=== PATIENT | female | born 1980 | race Two or more races ===

== ENCOUNTER 2017-05-28 14:07 | Inpatient (IN) | payer OTHER ==
[2017-05-28 14:12] VITALS: BMI 30.2
--- NOTE | 2017-05-28 15:46 | PDOC ---
History of Present Illness - General History Source: Patient Exam Limitations: No Limitations - History of Present Illness Initial Comments: CHIEF COMPLAINT: 36 y/o afebrile female with no significant PMH c/o abdominal pain since 4am. HISTORY OF PRESENT ILLNESS: The patient states the pain started in her epigastric region but is now everywhere. She states it is constant in nature. She has vomited 3 times and is nauseous. She denies f/c, ENGEL, diarrhea, constipation, CP, SOB, back pain, hematuria, dysuria. Vital signs on arrival are within normal limits. REVIEW OF SYSTEMS: GENERAL/CONSTITUTIONAL: No fever/chills. No weakness. No weight change. HEAD, EYES, EARS, NOSE AND THROAT: No change in vision. No ear pain or discharge. No sore throat. CARDIOVASCULAR: No chest pain or shortness of breath. RESPIRATORY: No cough, wheezing, or hemoptysis. GASTROINTESTINAL: +abd pain, nausea and vomiting. No diarrhea or constipation. GENITOURINARY: No dysuria, frequency, or change in urination. MUSCULOSKELETAL: No joint or muscle swelling or pain. No neck or back pain. SKIN: No rash or easy bruising. NEUROLOGIC: No headache, vertigo, loss of consciousness, or loss of sensation. PHYSICAL EXAM: GENERAL: The patient is awake, alert, and fully oriented, non toxic but uncomfortable appearing. HEAD: Normal with no signs of trauma. ENT: Pupils equal, round and reactive to light, extraocular movements intact, sclera anicteric, conjunctiva clear. Neck supple. LUNGS: Clear to auscultation bilaterally. Normal excursion. No respiratory distress or use of accessory muscles. CV: RRR, S1/S2, no MRG. Cap refill < 2 sec. ABDOMEN: Soft, non-distended, TTP of RLQ with passive guarding. No rebound or rigidity. Patient points to belly button as location of pain when jumping up and down. EXTREMITIES: Normal range of motion, no edema. NEUROLOGICAL: Normal speech, normal gait. CN II-XII grossly intact. PSYCH: Normal mood, normal affect. SKIN: Warm, dry, normal turgor, no rashes or lesions noted. <Trina Lynn - Last Filed: 05/28/17 18:20> <Susan Cerda - Last Filed: 05/28/17 20:40> - General Chief Complaint: Pain Stated Complaint: STOMACH PAIN Time Seen by Provider: 05/28/17 15:43 Past History - Psycho/Social/Smoking Cessation Hx Suicidal Ideation: No Smoking History: Never smoked Information on smoking cessation initiated: No <Trina Lynn - Last Filed: 05/28/17 18:20> <Susan Cerda - Last Filed: 05/28/17 20:40> - Past Medical History Allergies/Adverse Reactions: Allergies Allergy/AdvReac Type Severity Reaction Status Date / Time No Known Allergies Allergy Verified 05/28/17 14:12 *Physical Exam - Vital Signs Last Vital Signs Temp Pulse Resp BP Pulse Ox 97.9 F 79 18 121/69 100 05/28/17 14:09 05/28/17 14:09 05/28/17 14:09 05/28/17 14:09 05/28/17 14:09 <Trina Lynn - Last Filed: 05/28/17 18:20> - Vital Signs Last Vital Signs Temp Pulse Resp BP Pulse Ox 97.9 F 79 18 121/69 100 05/28/17 14:09 05/28/17 14:09 05/28/17 14:09 05/28/17 14:09 05/28/17 14:09 <Susan Cerda - Last Filed: 05/28/17 20:40> ED Treatment Course - LABORATORY CBC & Chemistry Diagram: 05/28/17 16:00 05/28/17 16:00 <Trina Lynn - Last Filed: 05/28/17 18:20> - LABORATORY CBC & Chemistry Diagram: 05/28/17 16:00 05/28/17 16:00 - ADDITIONAL ORDERS Additional order review: Laboratory Results 05/28/17 05/28/17 05/28/17 17:15 16:30 16:00 Sodium 135 L Potassium 4.2 Chloride 104 Carbon Dioxide 26 Anion Gap 5 L BUN 12 Creatinine 0.6 Creat Clearance w eGFR > 60 Random Glucose 93 Lactic Acid 1.9 Calcium 8.7 Total Bilirubin 1.0 AST 17 ALT 28 Alkaline Phosphatase 57 Total Protein 8.3 H Albumin 4.1 Urine Color Yellow Urine Appearance Clear Urine pH 7.0 Urine Protein Negative Urine Glucose (UA) Negative Urine Ketones Trace H Urine Blood 2+ H Urine Nitrite Negative Urine Bilirubin Negative Urine Urobilinogen Negative Ur Leukocyte Esterase Negative Urine RBC 16 Urine WBC 2 Ur Epithelial Cells Rare Urine Mucus Rare Urine HCG, Qual Negative 05/28/17 16:00 RBC 4.21 MCV 86.6 MCHC 32.9 RDW 15.1 MPV 7.4 L Neutrophils % 93.9 H Lymphocytes % 3.4 L Monocytes % 2.6 L Eosinophils % 0.0 Basophils % 0.1 - Medications Given in the ED: ED Medications Discontinued Medications Generic Name Dose Route Start Last Admin Trade Name Clara PRN Reason Stop Dose Admin Sodium Chloride 1,000 mls @ 1,000 mls/hr 05/28/17 15:56 05/28/17 16:12 Normal Saline - IV 05/28/17 16:55 1,000 mls/hr ASDIR STA Administration <Susan Cerda - Last Filed: 05/28/17 20:40> Medical Decision Making - Medical Decision Making A/P: 36 y/o afebrile female with RLQ abdominal pain and vomiting x 3 times. Plan is as follows: 1. Labs 2. UA/hcg/culture 3. IV fluids I am signing this patient out to my colleague: ALFONZO Cerda In brief, this patient is being seen in the ED for a chief complaint of: abdominal pain and vomiting I have completed the initial assessment interview note and have ordered: labs, UA, hcg, CT scan abd/pelvis I have reviewed the following results: labs, UA, hcg Pending results are: CT scan abd/pelvis r/o appendicitis Plan for disposition is as follows: Pending <Trina Lynn - Last Filed: 05/28/17 18:20> *DC/Admit/Observation/Transfer <Trina Lynn - Last Filed: 05/28/17 18:20> - Discharge Dispostion Admit: Yes <Susan Cerda - Last Filed: 05/28/17 20:40> Diagnosis at time of Disposition: Abdominal pain Qualifiers: Abdominal location: right lower quadrant Qualified Code(s): R10.31 - Right lower quadrant pain
[2017-05-28] MEDS ORDERED: SODIUM CHLORIDE 1,000 ML IV STA (15:56)
[2017-05-28 16:23] LABS: BASOPHIL 0.1 % (0-2.0); MCH 28.5 pg (25.7-33.7); MCHC 32.9 g/dl (32.0-36.0); MEAN CELL VOLUME 86.6 fl (80-96); MEAN PLT VOLUME 7.4 fl (7.5-11.1); NEUTROPHILS 93.9 % (42.8-82.8); PLATELET COUNT 323 K/MM3 (134-434); RDW 15.1 % (11.6-15.6); WHITE BLOOD COUNT 16.2 K/mm3 (4.0-10.0)
[2017-05-28 17:07] LABS: ALBUMIN 4.1 g/dl (3.4-5.0); ANION GAP 5 (8-16); CALCIUM 8.7 mg/dL (8.5-10.1); CO2 26 mmol/L (21-32); GLUCOSE,RANDOM 93 mg/dL (74-106); SGPT/ALT 28 U/L (12-78)
[2017-05-28 17:10] LABS: ALK PHOS 57 U/L (45-117); CREATININE 0.6 mg/dL (0.55-1.02); SGOT/AST 17 U/L (15-37); TOT PROT 8.3 g/dl (6.4-8.2)
[2017-05-28 17:54] LABS: URINE APPEARANCE CLEAR; URINE BILIRUBIN NEGATIVE (NEGATIVE); URINE BLOOD 2+ (NEGATIVE); URINE COLOR YELLOW; URINE GLUCOSE (UA) NEGATIVE (NEGATIVE); URINE KETONE TRACE (NEGATIVE); URINE LEUK ESTERASE NEGATIVE (NEGATIVE); URINE NITRITE NEGATIVE (NEGATIVE); URINE PROTEIN NEGATIVE (NEGATIVE); URINE UROBILINOGEN NEGATIVE mg/dL (0.2-1.0)
[2017-05-28 18:09] LABS: URINE MUCUS RARE; URINE RBC 16 /hpf (0-3); URINE WBC 2 /hpf (3-5)
--- NOTE | 2017-05-28 19:23 | PDOC ---
*Physical Exam - Vital Signs Last Vital Signs Temp Pulse Resp BP Pulse Ox 97.9 F 79 18 121/69 100 05/28/17 14:09 05/28/17 14:09 05/28/17 14:09 05/28/17 14:09 05/28/17 14:09 - Physical Exam Comments: 05/28/17 19:22 Sign-out received from outgoing ER provider Leah. Pt interviewed and examined. Ancillary studies reviewed. Awaiting A&P CT. CT positive for appendicitis. Discussed case with on-call surgeon MD Cotto, per Dr. Cotto will admit to hospital for operation tomorrow. -1 g Rocephin IV -500 mg Flagyl IV ED Treatment Course - LABORATORY CBC & Chemistry Diagram: 05/28/17 16:00 05/28/17 16:00 - ADDITIONAL ORDERS Additional order review: Laboratory Results 05/28/17 05/28/17 05/28/17 17:15 16:30 16:00 Sodium 135 L Potassium 4.2 Chloride 104 Carbon Dioxide 26 Anion Gap 5 L BUN 12 Creatinine 0.6 Creat Clearance w eGFR > 60 Random Glucose 93 Lactic Acid 1.9 Calcium 8.7 Total Bilirubin 1.0 AST 17 ALT 28 Alkaline Phosphatase 57 Total Protein 8.3 H Albumin 4.1 Urine Color Yellow Urine Appearance Clear Urine pH 7.0 Urine Protein Negative Urine Glucose (UA) Negative Urine Ketones Trace H Urine Blood 2+ H Urine Nitrite Negative Urine Bilirubin Negative Urine Urobilinogen Negative Ur Leukocyte Esterase Negative Urine RBC 16 Urine WBC 2 Ur Epithelial Cells Rare Urine Mucus Rare Urine HCG, Qual Negative 05/28/17 16:00 RBC 4.21 MCV 86.6 MCHC 32.9 RDW 15.1 MPV 7.4 L Neutrophils % 93.9 H Lymphocytes % 3.4 L Monocytes % 2.6 L Eosinophils % 0.0 Basophils % 0.1 - Medications Given in the ED: ED Medications Discontinued Medications Generic Name Dose Route Start Last Admin Trade Name Freq PRN Reason Stop Dose Admin Sodium Chloride 1,000 mls @ 1,000 mls/hr 05/28/17 15:56 05/28/17 16:12 Normal Saline - IV 05/28/17 16:55 1,000 mls/hr ASDIR STA Administration *DC/Admit/Observation/Transfer Diagnosis at time of Disposition: Abdominal pain Qualifiers: Abdominal location: right lower quadrant Qualified Code(s): R10.31 - Right lower quadrant pain Appendicitis Qualifiers: Appendicitis type: acute appendicitis Acute appendicitis type: unspecified acute appendicitis type Qualified Code(s): K35.80 - Unspecified acute appendicitis - Discharge Dispostion Admit: Yes
[2017-05-28] MEDS: AMPICILLIN NA/SULBACTAM NA 3 GM in SODIUM CHLORIDE 100 ML IVPB ONE ×2 (20:32→21:40)
--- NOTE | 2017-05-28 20:35 | PDOC ---
*Physical Exam - Vital Signs Last Vital Signs Temp Pulse Resp BP Pulse Ox 97.9 F 79 18 121/69 100 05/28/17 14:09 05/28/17 14:09 05/28/17 14:09 05/28/17 14:09 05/28/17 14:09 ED Treatment Course - LABORATORY CBC & Chemistry Diagram: 05/28/17 16:00 05/28/17 16:00 - ADDITIONAL ORDERS Additional order review: Laboratory Results 05/28/17 05/28/17 05/28/17 17:15 16:30 16:00 Sodium 135 L Potassium 4.2 Chloride 104 Carbon Dioxide 26 Anion Gap 5 L BUN 12 Creatinine 0.6 Creat Clearance w eGFR > 60 Random Glucose 93 Lactic Acid 1.9 Calcium 8.7 Total Bilirubin 1.0 AST 17 ALT 28 Alkaline Phosphatase 57 Total Protein 8.3 H Albumin 4.1 Urine Color Yellow Urine Appearance Clear Urine pH 7.0 Urine Protein Negative Urine Glucose (UA) Negative Urine Ketones Trace H Urine Blood 2+ H Urine Nitrite Negative Urine Bilirubin Negative Urine Urobilinogen Negative Ur Leukocyte Esterase Negative Urine RBC 16 Urine WBC 2 Ur Epithelial Cells Rare Urine Mucus Rare Urine HCG, Qual Negative 05/28/17 16:00 RBC 4.21 MCV 86.6 MCHC 32.9 RDW 15.1 MPV 7.4 L Neutrophils % 93.9 H Lymphocytes % 3.4 L Monocytes % 2.6 L Eosinophils % 0.0 Basophils % 0.1 - Medications Given in the ED: ED Medications Discontinued Medications Generic Name Dose Route Start Last Admin Trade Name Freq PRN Reason Stop Dose Admin Sodium Chloride 1,000 mls @ 1,000 mls/hr 05/28/17 15:56 05/28/17 16:12 Normal Saline - IV 05/28/17 16:55 1,000 mls/hr ASDIR STA Administration Medical Decision Making - Medical Decision Making 05/28/17 20:33 Agree with PA evaluation, assessment, and plan. 36F with abdominal pain that migrated from periumbilical region to RLQ, + N/V. CTAP consistent with acute appy. No evidence of perforation. - Surgery consult - IV Abx, NPO, IVF - Admit *DC/Admit/Observation/Transfer Diagnosis at time of Disposition: Abdominal pain Qualifiers: Abdominal location: right lower quadrant Qualified Code(s): R10.31 - Right lower quadrant pain - Attestations Physician Attestion: 05/28/17 20:35 I, Dr. Jamie Moreno MD, attest that this document has been prepared under my direction and personally reviewed by me in its entirety. I further attest, that it accurately reflects all work, treatment, procedures and medical decision -making performed by me.
[2017-05-28] MEDS ORDERED: METRONIDAZOLE 500 MG PREMIXED 100 ML IVPB ONE ×2 (20:36→20:40)
[2017-05-28] MEDS ORDERED: CEFTRIAXONE 1 GM in DEXTROSE 5%-WATER - 50 ML IVPB ONE (20:36)
[2017-05-28] MEDS ORDERED: CEFTRIAXONE 50 ML ONE (20:39)
[2017-05-28] MEDS ORDERED: ONDANSETRON 4 MG/2 ML VIAL IVPUSH ONE (20:40)
[2017-05-28] MEDS ORDERED: morphine CARPU-JECT 4 MG/1 ML DISP.SYRIN IVPUSH ONE (20:40)
[2017-05-28] MEDS ORDERED: morphine CARPU-JECT 4 MG/1 ML DISP.SYRIN ONE (20:42)
[2017-05-28] MEDS ORDERED: ONDANSETRON 4 MG/2 ML VIAL ONE (20:43)
[2017-05-28 22:27] LABS: INR 1.07 (0.82-1.09); PROTHROMBIN TIME (PATIENT) 11.8 SEC (9.98-11.88)
[2017-05-28 22:30] LABS: ACTIVATED PTT 33.1 SECONDS (26.9-34.4)
--- NOTE | 2017-05-28 22:50 | HP ---
Admitting History and Physical - Primary Care Physician PCP: Paolo Cortes - Admission Chief Complaint: abdominal pain History of Present Illness: The patient states the pain started in her epigastric region but is now everywhere. She states it is constant in nature. She has vomited 3 times and is nauseous. She denies f/c, ENGEL, diarrhea, constipation, CP, SOB, back pain, hematuria, dysuria. - Smoking History Smoking history: Never smoked Home Medications - Allergies Allergies/Adverse Reactions: Allergies Allergy/AdvReac Type Severity Reaction Status Date / Time No Known Allergies Allergy Verified 05/29/17 09:37 - Home Medications Home Medications: Ambulatory Orders NK [No Known Home Medication] 05/28/17 Physical Examination Vital Signs: Vital Signs Temperature 97.9 F 05/28/17 14:09 Pulse Rate 79 05/28/17 14:09 Respiratory Rate 18 05/28/17 14:09 Blood Pressure 121/69 05/28/17 14:09 O2 Sat by Pulse Oximetry (%) 100 05/28/17 14:09 Constitutional: Yes: No Distress HENT: Yes: Atraumatic Neck: Yes: Supple Cardiovascular: Yes: Regular Rate and Rhythm Respiratory: Yes: CTA Bilaterally Gastrointestinal: Yes: Normal Bowel Sounds, Tenderness (rlq) Extremities: Yes: WNL Edema: No Peripheral Pulses WNL: Yes Neurological: Yes: Alert, Oriented Problem List - Problems (1) Abdominal pain Assessment/Plan: prn pain meds surgery consult npo ivf Code(s): R10.9 - UNSPECIFIED ABDOMINAL PAIN Qualifiers: Abdominal location: right lower quadrant Qualified Code(s): R10.31 - Right lower quadrant pain (2) Appendicitis Assessment/Plan: acute appendicitis for OR in am Code(s): K37 - UNSPECIFIED APPENDICITIS Qualifiers: Appendicitis type: acute appendicitis Acute appendicitis type: unspecified acute appendicitis type Qualified Code(s): K35.80 - Unspecified acute appendicitis Assessment/Plan Laboratory Tests 05/28/17 05/28/17 05/28/17 16:00 16:00 16:30 WBC 16.2 H RBC 4.21 Hgb 12.0 Hct 36.5 MCV 86.6 MCH 28.5 MCHC 32.9 RDW 15.1 Plt Count 323 MPV 7.4 L Neutrophils % 93.9 H Lymphocytes % 3.4 L Monocytes % 2.6 L Eosinophils % 0.0 Basophils % 0.1 INR PTT (Actin FS) Sodium 135 L Potassium 4.2 Chloride 104 Carbon Dioxide 26 Anion Gap 5 L BUN 12 Creatinine 0.6 Creat Clearance w eGFR > 60 Random Glucose 93 Lactic Acid 1.9 Calcium 8.7 Total Bilirubin 1.0 AST 17 ALT 28 Alkaline Phosphatase 57 Total Protein 8.3 H Albumin 4.1 Urine Color Urine Appearance Urine pH Ur Specific [place] Urine Protein Urine Glucose (UA) Urine Ketones Urine Blood Urine Nitrite Urine Bilirubin Urine Urobilinogen Ur Leukocyte Esterase Urine RBC Urine WBC Ur Epithelial Cells Urine Mucus Urine HCG, Qual 05/28/17 05/28/17 17:15 21:50 WBC RBC Hgb Hct MCV MCH MCHC RDW Plt Count MPV Neutrophils % Lymphocytes % Monocytes % Eosinophils % Basophils % INR 1.07 PTT (Actin FS) 33.1 Sodium Potassium Chloride Carbon Dioxide Anion Gap BUN Creatinine Creat Clearance w eGFR Random Glucose Lactic Acid Calcium Total Bilirubin AST ALT Alkaline Phosphatase Total Protein Albumin Urine Color Yellow Urine Appearance Clear Urine pH 7.0 Ur Specific [place] 1.020 Urine Protein Negative Urine Glucose (UA) Negative Urine Ketones Trace H Urine Blood 2+ H Urine Nitrite Negative Urine Bilirubin Negative Urine Urobilinogen Negative Ur Leukocyte Esterase Negative Urine RBC 16 Urine WBC 2 Ur Epithelial Cells Rare Urine Mucus Rare Urine HCG, Qual Negative Active Medications Generic Name Dose Route Start Last Admin Trade Name Freq PRN Reason Stop Dose Admin Enoxaparin Sodium 40 mg 05/30/17 10:00 05/30/17 09:32 Lovenox - SQ 40 mg DAILY KENN Administration Hydromorphone HCl 1 mg 05/29/17 13:03 05/29/17 16:04 Dilaudid Injection - IVPB 1 mg Q3H PRN Administration PAIN Piperacillin Sod/Tazobactam 100 mls @ 200 mls/hr 05/29/17 18:00 05/30/17 17:55 Sod 4.5 gm/ Dextrose IVPB 200 mls/hr Q8H-IV KENN Administration Protocol Ibuprofen 800 mg 05/29/17 12:45 05/29/17 17:44 Caldolor Injection - IVPB 800 mg Q6H PRN Administration PAIN Ondansetron HCl 4 mg 05/29/17 12:40 Zofran Injection IVPB Q6H PRN NAUSEA Oxycodone HCl 7.5 mg 05/29/17 12:40 08/09/17 11:20 Roxicodone - PO 7.5 mg Q4H PRN Administration PAIN Pantoprazole Sodium 40 mg 05/31/17 10:00 Protonix - PO DAILY KENN
[2017-05-28] MEDS ORDERED: AMPICILLIN NA/SULBACTAM NA 100 ML IVPB SCH (23:00)
[2017-05-28] MEDS ORDERED: SODIUM CHLORIDE 1,000 ML IV SCH (23:00)
[2017-05-28] MEDS: AMPICILLIN NA/SULBACTAM NA 1.5 GM in SODIUM CHLORIDE 100 ML IVPB SCH (23:52)
[2017-05-29] MEDS ORDERED: HYDROmorphone HCL CARPU-JECT 1 MG/1 ML DISP.SYRIN ONE ×2 (03:14→08:43)
[2017-05-29] MEDS: HYDROmorphone HCL CARPU-JECT 1 MG/1 ML DISP.SYRIN IVPB PRN ×2 (03:19→08:52)
[2017-05-29] MEDS: AMPICILLIN NA/SULBACTAM NA 1.5 GM in SODIUM CHLORIDE 100 ML IVPB SCH (03:19)
--- NOTE | 2017-05-29 07:35 | PN ---
Progress Note (short form) - Note Progress Note: surgery ct reviewed. pt admitted for iv abx. surgery tentatively scheduled for 11:30 am. cont npo.
[2017-05-29 07:46] LABS: BASOPHIL 0.1 % (0-2.0); MCH 28.4 pg (25.7-33.7); MCHC 33.1 g/dl (32.0-36.0); MEAN CELL VOLUME 85.8 fl (80-96); MEAN PLT VOLUME 7.3 fl (7.5-11.1); NEUTROPHILS 86.1 % (42.8-82.8); PLATELET COUNT 299 K/MM3 (134-434); RDW 14.9 % (11.6-15.6)
[2017-05-29 08:09] LABS: ALBUMIN 3.1 g/dl (3.4-5.0); ALK PHOS 48 U/L (45-117); ANION GAP 9 (8-16); BILIRUBIN,TOTAL 1.4 mg/dL (0.2-1.0); CALCIUM 7.9 mg/dL (8.5-10.1); CO2 23 mmol/L (21-32); CREATININE 0.6 mg/dL (0.55-1.02); GLUCOSE,RANDOM 94 mg/dL (74-106); SGOT/AST 12 U/L (15-37); SGPT/ALT 21 U/L (12-78); TOT PROT 6.6 g/dl (6.4-8.2)
[2017-05-29] MEDS ORDERED: METRONIDAZOLE 500 MG PREMIXED 100 ML IVPB SCH ×2 (09:00→15:00)
[2017-05-29] MEDS ORDERED: CEFTRIAXONE 50 ML IVPB SCH (10:00)
[2017-05-29] MEDS ORDERED: PROPOFOL 20 ML ONE ×2 (10:38→12:12)
[2017-05-29] MEDS ORDERED: MIDAZOLAM HCL 2 MG/2 ML SINGLE DOSE VIAL ONE (10:39)
[2017-05-29] MEDS ORDERED: ROCURONIUM BROMIDE 50 MG/5 ML VIAL ONE (10:39)
[2017-05-29] MEDS ORDERED: ceFAZolin SODIUM 1 GM VIAL ONE (10:39)
[2017-05-29] MEDS ORDERED: DEXAMETHASONE SOD PHOSPHATE 4 MG/1 ML VIAL ONE (10:40)
[2017-05-29] MEDS ORDERED: ePHEDrine SULFATE 50 MG/1 ML AMPULE ONE (10:51)
[2017-05-29] MEDS ORDERED: LIDOCAINE HCL 2% (20ML MULTI-DOSE VIAL) NR ONE (10:53)
--- NOTE | 2017-05-29 11:21 | PN ---
Progress Note (short form) - Note Progress Note: surgery pt seen and examined. full consult dictated. 36f with1 day abd pain, nausea and vomiting. wbc [address] consistent with acute appendicitis. pt admitted with iv abx. on exam abd is soft,mild distension, +lower abd tenderness with guarding and rebound Plan- sepsis, localized peritonitis, acute appendicits. Will move in direction of surgery. Cont Rocephin and Flagyl.
--- NOTE | 2017-05-29 11:56 | CONS ---
DATE OF CONSULTATION: 05/29/2017 REASON FOR CONSULTATION: Acute appendicitis. This is an emergency room consultation at the request of the emergency room physician. BRIEF HISTORY: This is a 36-year-old female who presented to [facility] Emergency Room with less than 1 day of lower abdominal pain, nausea, and vomiting. She was noted to have lower abdominal tenderness and had elevated white blood cell count. She had a CAT scan of her abdomen and pelvis which was consistent with acute, non-complicated appendicitis. She was admitted to the hospital, started on Rocephin and Flagyl antibiotic, and surgical consultation was requested. Her nausea has since improved. She still has some pain and she has a low-grade fever of 100.0. PAST MEDICAL HISTORY: Negative. PAST SURGICAL HISTORY: Significant for section x2, abdominoplasty, and breast augmentation. SOCIAL HISTORY: Negative for alcohol. Negative for tobacco. FAMILY HISTORY: Negative for malignancy in the immediate family. MEDICATIONS: She takes no medications at home. ALLERGIES: She has no known drug allergies. REVIEW OF SYSTEMS: General: Denies fatigue or malaise. Cardiac: Denies chest pain or palpitations. Respiratory: Denies shortness of breath or wheeze. Gastrointestinal: As in HPI. Denies diarrhea. Denies blood in her stool. Denies recent weight loss. Genitourinary: Denies dysuria. Musculoskeletal: Denies joint pain and joint swelling. Psychiatric: Denies anxiety, depression, or hearing voices. PHYSICAL EXAMINATION: General: This is an obese, 36-year-old female in no distress. Vital Signs: She is currently febrile at 100.0. Her heart rate is 100. Her blood pressure is 95/59, and her respiratory rate is 18. She appears to be in no distress. HEENT: Her head is normocephalic. Her sclerae are anicteric. Neck: Supple. Chest: Clear. Abdomen: Soft. There are abdominoplasty scars. She has mild distention. She has moderate tenderness in the lower abdomen on the left and right side with tenderness and rebound. There is also guarding. Extremities: No edema. LABORATORY: Her white blood cell count is 19.0 with an 86% shift. Her chemistries are unremarkable. Her urinalysis is unremarkable, and she is not . IMAGING: She has a CAT scan of her abdomen and pelvis, which shows a markedly distended, inflamed appendix with multiple appendicoliths. There are no fluid collections noted. An IUD is seen. There is no evidence of perforation or abscess. ASSESSMENT: This is a 36-year-old female with lower abdominal pain, nausea, and vomiting, with leukocytosis and CAT scan evidence of acute appendicitis. Clinically, this is acute appendicitis. Patient also has a heart rate greater than 90, a white blood cell count of 19, a suspected source of infection, letting her meet sepsis criteria and giving her the diagnosis of sepsis. I agree with admission. I agree with Ty and Manuelito to cover E. coli and other enteric as well as [id number] ruben. At this point, we will move in the direction of surgery. I suspect that medical management will not have a favorable outcome. Risks and benefits of surgery have been explained to the patient in detail. These are including, but not limited to, the possibility of conversion to open, possible injury to viscera or bladder, the possibility of blood loss requiring blood transfusion, the possibility of infection, the possibility of staple line dehiscence with leak, the possibility of future obstruction, the possibility of future hernia, plus a multiple of medical risks including, but not limited to, cardiac, neurologic, pulmonary, and vascular complications and even . The patient understands these risks and is agreeable to surgery. DO SHAUN AYALA/[id number]
[2017-05-29] MEDS ORDERED: GLYCOPYRROLATE 0.2 MG/1 ML VIAL ONE (12:04)
[2017-05-29] MEDS ORDERED: NEOSTIGMINE METHYLSULFATE 0.5 MG/ML - 10 ML MDV ONE (12:04)
[2017-05-29] MEDS ORDERED: HYDROmorphone HCL/PF 1 MG/ML VIAL (FOR PYXIS CHARGING ONLY) ONE (12:22)
[2017-05-29] MEDS ORDERED: ONDANSETRON 4 MG/2 ML VIAL IVPB PRN (12:40)
[2017-05-29] MEDS ORDERED: IBUPROFEN 800 MG/8 ML IJ IVPB PRN (12:45)
--- NOTE | 2017-05-29 12:48 | OP ---
Operative Note - Note: Operative Date: 05/29/17 Pre-Operative Diagnosis: acute appendicitis Operation: laparoscoic appendectomy, lavage Findings: thickened appendix with appendicolith at base eroding through wall. sigmoid colon,ileum, and omentum involved in phlegmon Post-Operative Diagnosis: Same as Pre-op Surgeon: Rivera Cotto Anesthesiologist/GRATING MACHINE OPERATOR: Krystina Rabago MD Anesthesia: General Specimens Removed: appendix with appendicolith Estimated Blood Loss (mls): 20 Drains & Tubes with [facility]
[2017-05-29] MEDS ORDERED: ONDANSETRON 4 MG/2 ML VIAL IVPUSH PRN (12:51)
[2017-05-29] MEDS ORDERED: LACTATED RINGERS SOLUTION 1,000 ML IV SCH (13:00)
[2017-05-29] MEDS ORDERED: SODIUM CHLORIDE 1,000 ML IV SCH (13:03)
[2017-05-29] MEDS ORDERED: HYDROmorphone HCL CARPU-JECT 1 MG/1 ML DISP.SYRIN IVPB PRN (13:03)
--- NOTE | 2017-05-29 13:41 | OP ---
DATE OF OPERATION: 05/29/2017 PREOPERATIVE DIAGNOSES: Acute appendicitis, sepsis. POSTOPERATIVE DIAGNOSES: Acute appendicitis, sepsis. PROCEDURE: Laparoscopic appendectomy, lavage. SURGEON: Rivera Cotto DO. UNDER BASTER: None. ANESTHESIOLOGIST: Krystina Rabago MD (general) SPECIMEN: Appendix. DRAINS: A Polo-Talamantes drain in the right lower quadrant. BLOOD LOSS: 20 mL. INTRAOPERATIVE FINDINGS: A thick and inflamed appendix with an area of gangrene at its base with an appendicolith eroding through. There was also fibrinous exudate with a phlegmon involving the sigmoid colon, terminal ileum, and omentum. BRIEF HISTORY: This is a 36-year-old female who presented to [facility] with less than 24 hours of abdominal pain, nausea, and vomiting. She was admitted for appendicitis and presents now for surgery. She had CAT scan evidence to support her diagnosis. PROCEDURE: The patient was placed in the supine position. After general anesthesia was initiated, the abdomen was prepped and draped in sterile fashion. A curvilinear incision was made infraumbilical at a location of a previous abdominoplasty scar. The fascia was then lifted with a Giana clamp, incised vertically, and the peritoneum was entered bluntly. Next, a 0 Vicryl stitch was placed across the fascial defect and used to secure the Abner trocar. Pneumoperitoneum was then created without incident and two 5-mm trocars were placed, 1 in the left lower quadrant and 1 suprapubic with care to avoid injuring the bladder. At this point, attention was turned to the right lower quadrant. The appendix was quite large. Omentum was draped over it as well as the sigmoid colon. Peeling it back exposed a very elongated appendix with its tip all the way into the left lower quadrant. At the base of the appendix, the ileum was stuck to it and this was peeled off, exposing an area of gangrene with a fecalith partially exposed into the abdomen. A window was made at the base of the appendix. The LigaSure device was used to divide the mesoappendix with multiple welts. A large fecalith was left initially in the phlegmon cavity as the appendix was divided with an Endo-MASSIEL Ultra purple- load stapler. The staple line was inspected. It was intact. There was no bleeding , no breaks, no sign of ischemia. At this point, the appendix was placed in a specimen bag as well as the large appendicolith intact. It was then removed through the infraumbilical trocar site and sent to Pathology marked as specimen. A vigorous lavage was done and the cavity of the phlegmon, removing all gross signs of fecal contamination. The gutters were irrigated as well as the pelvis above and below the uterus. At this point, a Polo-Talamantes drain was placed with its base in the cavity of the phlegmon and the tip into the right pelvic cul-de-sac. It was secured at the suprapubic trocar site with a silk drain stitch. The remaining trocars were removed under direct visualization. Pneumoperitoneum was then released. The fascia at the infraumbilical trocar site was then closed with multiple interrupted 0 Vicryl sutures. The 2 remaining skin incisions were closed with subcuticular Biosyn and Dermabond dressing was placed. The patient's disposition was to the recovery room in stable condition. Her Olivera catheter was removed at the end of the operation and the operation terminated. DO SHAUN AYALA/[id number] MTDD
[2017-05-29] MEDS ORDERED: METRONIDAZOLE 500 MG PREMIXED 100 ML IVPB ONE (14:58)
--- NOTE | 2017-05-29 16:20 | PN ---
Progress Note, Physician History of Present Illness: s/p surgery pain in belly at the surgery site - Current Medication List Current Medications: Active Medications Enoxaparin Sodium (Lovenox -) 40 mg SQ DAILY [facility] Hydromorphone HCl (Dilaudid Injection -) 1 mg IVPB Q3H PRN PRN Reason: PAIN Last Admin: 05/29/17 16:04 Dose: 1 mg Pantoprazole Sodium (Protonix 40mg Ivpb (Pre-Docked)) 100 mls @ 200 mls/hr IVPB DAILY [facility] Metronidazole (Flagyl 500mg Premixed Ivpb -) 100 mls @ 100 mls/hr IVPB Q6H-IV [facility] Last Admin: 05/29/17 15:50 Dose: Not Given Ceftriaxone Sodium (Rocephin 1gm Ivpb (Pre-Docked)) 50 mls @ 100 mls/hr IVPB DAILY [facility] Sodium Chloride (Normal Saline -) 1,000 mls @ 100 mls/hr IV ASDIR [facility] Last Admin: 05/29/17 16:05 Dose: 100 mls/hr Ibuprofen (Caldolor Injection -) 800 mg IVPB Q6H PRN PRN Reason: PAIN Ondansetron HCl (Zofran Injection) 4 mg IVPB Q6H PRN PRN Reason: NAUSEA Ondansetron HCl (Zofran Injection) 4 mg IVPUSH Q6H PRN PRN Reason: NAUSEA AND/OR VOMITING Stop: 05/29/17 18:52 Oxycodone HCl (Roxicodone -) 7.5 mg PO Q4H PRN PRN Reason: PAIN - Objective Vital Signs: Vital Signs Temperature 98.7 F 05/29/17 15:52 Pulse Rate 92 H 05/29/17 15:52 Respiratory Rate 20 05/29/17 16:12 Blood Pressure 113/74 05/29/17 15:52 O2 Sat by Pulse Oximetry (%) 99 05/29/17 16:12 Constitutional: Yes: No Distress HENT: Yes: Atraumatic Neck: Yes: Supple Cardiovascular: Yes: Regular Rate and Rhythm Respiratory: Yes: CTA Bilaterally Gastrointestinal: Yes: Hypoactive Bowel Sounds, Tenderness (at the surgery site) Extremities: Yes: WNL Neurological: Yes: Alert, Oriented Labs: CBC, BMP 05/29/17 07:05 05/29/17 07:05 INR, PTT INR 1.07 (0.82-1.09) 05/28/17 21:50 Problem List - Problems (1) Abdominal pain Assessment/Plan: s/p surgery doing well on iv abx surgery note reviewed Code(s): R10.9 - UNSPECIFIED ABDOMINAL PAIN Qualifiers: Abdominal location: right lower quadrant Qualified Code(s): R10.31 - Right lower quadrant pain (2) Appendicitis Assessment/Plan: s/p surgery Code(s): K37 - UNSPECIFIED APPENDICITIS Qualifiers: Appendicitis type: acute appendicitis Acute appendicitis type: unspecified acute appendicitis type Qualified Code(s): K35.80 - Unspecified acute appendicitis
--- NOTE | 2017-05-29 17:18 | CONSULT ---
Consult Consult Specialty:: infectious diseases Reason for Consultation:: perforated gangrenous appendix - History of Present Illness Chief Complaint: abd pain History of Present Illness: this is a young patient with no medical problems admitted because she was having abd pain and vomiting which started suddenly patient came into the hospital and was found to have peritonitis and ruptured appendix,patient was taken to the operating room and was operated and the finding thickened appendix with appendicolith at base eroding through wall. sigmoid colon,ileum, and omentum involved in phlegmon patient post op has a cinthia drain in place and says the pain before surgery is better still has pain - History Source History Provided By: Patient, Family Member Limitations to Obtaining History: Language Barrier - Past Medical History ...LMP: 05/29/17 - Alcohol/Substance Use Hx Alcohol Use: No - Smoking History Smoking history: Never smoked Home Medications - Allergies Allergies/Adverse Reactions: Allergies Allergy/AdvReac Type Severity Reaction Status Date / Time No Known Allergies Allergy Verified 05/29/17 09:37 - Home Medications Home Medications: Ambulatory Orders NK [No Known Home Medication] 05/28/17 Review of Systems - Review of Systems Constitutional: reports: No Symptoms Eyes: reports: No Symptoms HENT: reports: No Symptoms Neck: reports: No Symptoms Cardiovascular: reports: No Symptoms Respiratory: reports: No Symptoms Gastrointestinal: reports: Abdominal Pain Genitourinary: reports: No Symptoms Breasts: reports: No Symptoms Reported Musculoskeletal: reports: No Symptoms Integumentary: reports: No Symptoms Neurological: reports: No Symptoms Endocrine: reports: No Symptoms Hematology/Lymphatic: reports: No Symptoms Psychiatric: reports: No Symptoms Physical Exam Vital Signs: Vital Signs Temperature 98.7 F 05/29/17 15:52 Pulse Rate 92 H 05/29/17 15:52 Respiratory Rate 20 05/29/17 16:12 Blood Pressure 113/74 05/29/17 15:52 O2 Sat by Pulse Oximetry (%) 99 05/29/17 16:12 Constitutional: Yes: Well Nourished, Moderate Distress Eyes: Yes: Conjunctiva Clear HENT: Yes: Atraumatic Neck: Yes: Supple, Trachea Midline Cardiovascular: Yes: Regular Rate and Rhythm Respiratory: Yes: Regular, CTA Bilaterally Gastrointestinal: Yes: Tenderness, Other (absent bowel sounds cinthia drain place) Musculoskeletal: Yes: WNL Extremities: Yes: WNL Neurological: Yes: Alert, Oriented Psychiatric: Yes: Alert, Oriented Labs: CBC, BMP 05/29/17 07:05 05/29/17 07:05 Assessment/Plan Problem List - Problems (1) Abdominal pain Code(s): R10.9 - UNSPECIFIED ABDOMINAL PAIN Qualifiers: Abdominal location: right lower quadrant Qualified Code(s): R10.31 - Right lower quadrant pain (2) Appendicitis Code(s): K37 - UNSPECIFIED APPENDICITIS Qualifiers: Appendicitis type: acute appendicitis Acute appendicitis type: unspecified acute appendicitis type Qualified Code(s): K35.80 - Unspecified acute appendicitis peritonitis plan will stop levaquin and flagyl will switch to zosyn
[2017-05-29] MEDS ORDERED: DEXTROSE 5%-WATER 100 ML IVPB ONE (17:35)
[2017-05-29] MEDS ORDERED: PIPERACILLIN/TAZOBACTAM 4.5 GM VIAL IVPB ONE (17:35)
[2017-05-29] MEDS: PIPERACILLIN/TAZOB 4.5 GM 4.5 GM in DEXTROSE 5%-WATER 100 ML IVPB SCH (18:09)
[2017-05-30] MEDS: PIPERACILLIN/TAZOB 4.5 GM 4.5 GM in DEXTROSE 5%-WATER 100 ML IVPB SCH ×3 (02:17→17:55)
[2017-05-30 08:29] LABS: MCH 28.4 pg (25.7-33.7); MCHC 32.7 g/dl (32.0-36.0); MEAN CELL VOLUME 86.9 fl (80-96); MEAN PLT VOLUME 7.7 fl (7.5-11.1); PLATELET COUNT 319 K/MM3 (134-434); RDW 15.1 % (11.6-15.6); WHITE BLOOD COUNT 17.6 K/mm3 (4.0-10.0)
[2017-05-30 08:53] LABS: ANION GAP 9 (8-16); CALCIUM 8.4 mg/dL (8.5-10.1); CO2 24 mmol/L (21-32); CREATININE 0.7 mg/dL (0.55-1.02); GLUCOSE,RANDOM 92 mg/dL (74-106); MAGNESIUM 2.5 mg/dL (1.8-2.4)
[2017-05-30] MEDS ORDERED: PIPERACILLIN/TAZOBACTAM 4.5 GM VIAL IVPB ONE ×3 (09:27→17:54)
[2017-05-30] MEDS ORDERED: DEXTROSE 5%-WATER 100 ML IVPB ONE ×3 (09:28→17:54)
[2017-05-30] MEDS: ENOXAPARIN NA (PORCINE) 40 MG/0.4 ML DISP.SYRIN SQ SCH (09:32)
[2017-05-30] MEDS ORDERED: CEFTRIAXONE 50 ML IVPB SCH (10:00)
[2017-05-30] MEDS ORDERED: PANTOPRAZOLE SODIUM 100 ML IVPB SCH (10:00)
--- NOTE | 2017-05-30 10:25 | PN ---
Progress Note (short form) - Note Progress Note: Anesthesia postop note 36 y/o F s/p Ga for laparoscopic appendectomy POD#1, vss, aaox3, some pain No anesthesia complications.
--- NOTE | 2017-05-30 11:12 | PN ---
Progress Note (short form) - Note Progress Note: surgery pt seen and examined. feels much better. not hungry. oob. voiding. afebrile, tmax 100.2 abd- soft, mild distension, minimal expected tenderness, cinthia cloudy Laboratory Tests 05/30/17 05/30/17 07:30 07:30 WBC 17.6 H Potassium 3.8 Phosphorus 2.0 L A/P 1) Pod#1- full liqids, d/c ivf, cont cinthia 2) gangrenous appendicitis with eroded fecalith- cont iv zosyn, cont cinthia follow wbc 3) ileus- cont liquids 4) prophylaxis- lovenox, protonix, oob, spirometer 5) hypophosphatemia- will replace
[2017-05-30] MEDS: oxyCODONE HCL 5 MG TABLET PO PRN (11:20)
[2017-05-30] MEDS ORDERED: POTASSIUM PHOSPHATE 27 MM in DEXTROSE 5%-WATER - 250 ML IVPB ONE (12:00)
--- NOTE | 2017-05-30 15:45 | PN ---
Progress Note, Physician History of Present Illness: patient feels much better pain still better - Current Medication List Current Medications: Active Medications Enoxaparin Sodium (Lovenox -) 40 mg SQ DAILY [facility] Last Admin: 05/30/17 09:32 Dose: 40 mg Hydromorphone HCl (Dilaudid Injection -) 1 mg IVPB Q3H PRN PRN Reason: PAIN Last Admin: 05/29/17 16:04 Dose: 1 mg Piperacillin Sod/Tazobactam (Sod 4.5 gm/ Dextrose) 100 mls @ 200 mls/hr IVPB Q8H-IV [facility] PRN Reason: Protocol Last Admin: 05/30/17 09:32 Dose: 200 mls/hr Potassium Phosphate 27 mm/ (Dextrose) 259 mls @ 43.167 mls/hr IVPB ONCE ONE Stop: 05/30/17 17:59 Last Admin: 05/30/17 12:51 Dose: 43.167 mls/hr Ibuprofen (Caldolor Injection -) 800 mg IVPB Q6H PRN PRN Reason: PAIN Last Admin: 05/29/17 17:44 Dose: 800 mg Ondansetron HCl (Zofran Injection) 4 mg IVPB Q6H PRN PRN Reason: NAUSEA Oxycodone HCl (Roxicodone -) 7.5 mg PO Q4H PRN PRN Reason: PAIN Last Admin: 05/30/17 11:20 Dose: 7.5 mg Pantoprazole Sodium (Protonix -) 40 mg PO DAILY [facility] - Objective Vital Signs: Vital Signs Temperature 98.7 F 05/30/17 14:55 Pulse Rate 71 05/30/17 14:55 Respiratory Rate 20 05/30/17 09:00 Blood Pressure 98/63 05/30/17 14:55 O2 Sat by Pulse Oximetry (%) 99 05/30/17 09:00 Constitutional: Yes: No Distress, Calm Cardiovascular: Yes: Regular Rate and Rhythm Respiratory: Yes: Regular, CTA Bilaterally Gastrointestinal: Yes: Normal Bowel Sounds, Soft Musculoskeletal: Yes: WNL Extremities: Yes: WNL Neurological: Yes: Alert, Oriented Psychiatric: Yes: Alert, Oriented Labs: CBC, BMP 05/30/17 07:30 05/30/17 07:30 INR, PTT INR 1.07 (0.82-1.09) 05/28/17 21:50 Assessment/Plan Problem List - Problems (1) Abdominal pain Code(s): R10.9 - UNSPECIFIED ABDOMINAL PAIN Qualifiers: Abdominal location: right lower quadrant Qualified Code(s): R10.31 - Right lower quadrant pain (2) Appendicitis Code(s): K37 - UNSPECIFIED APPENDICITIS Qualifiers: Appendicitis type: acute appendicitis Acute appendicitis type: unspecified acute appendicitis type Qualified Code(s): K35.80 - Unspecified acute appendicitis peritonitis plan continue zosyn hydration rest as per surgery and primary
--- NOTE | 2017-05-30 15:58 | PATH ---
Surgical Pathology Report Patient Name: JANETT KIM [facility]. Rec. #: [id number] /Age/Gender: 1980 (Age: 36) / F Account: [id number] Location: [address] [place] [id number]/[facility] Taken: 05/29/2017 Received: 05/29/2017 Reported: 05/30/2017 Physicians: Jae Pacheco M.D. Specimen(s) Received APPENDIX Clinical History Appendicitis Final Diagnosis APPENDIX, APPENDECTOMY: ACUTE APPENDICITIS AND PERIAPPENDICITIS WITH GROSSLY NOTED AREA OF PERFORATION, AND FECALITH. Electronically Signed Gianni John M.D. Gross Description Received in formalin, labeled "appendix," is an 8 cm. in length vermiform appendix with a stapled margin of resection and abundant attached fat. The serosa is neff-pulliam with attached exudate and a focal defect, consistent with a rupture site. Sectioning reveals a hemorrhagic lumen. There is a separate fecalith received within the same container. The wall of the appendix averages 0.1 cm. in thickness. Sdc Teacher sections are submitted in one cassette. 05/29/2017 saudi05/29/2017
--- NOTE | 2017-05-30 19:12 | PN ---
Progress Note, Physician History of Present Illness: s/p surgery pain in belly at the surgery site better - Current Medication List Current Medications: Active Medications Enoxaparin Sodium (Lovenox -) 40 mg SQ DAILY [facility] Last Admin: 05/30/17 09:32 Dose: 40 mg Hydromorphone HCl (Dilaudid Injection -) 1 mg IVPB Q3H PRN PRN Reason: PAIN Last Admin: 05/29/17 16:04 Dose: 1 mg Piperacillin Sod/Tazobactam (Sod 4.5 gm/ Dextrose) 100 mls @ 200 mls/hr IVPB Q8H-IV [facility] PRN Reason: Protocol Last Admin: 05/30/17 17:55 Dose: 200 mls/hr Ibuprofen (Caldolor Injection -) 800 mg IVPB Q6H PRN PRN Reason: PAIN Last Admin: 05/29/17 17:44 Dose: 800 mg Ondansetron HCl (Zofran Injection) 4 mg IVPB Q6H PRN PRN Reason: NAUSEA Oxycodone HCl (Roxicodone -) 7.5 mg PO Q4H PRN PRN Reason: PAIN Last Admin: 05/30/17 11:20 Dose: 7.5 mg Pantoprazole Sodium (Protonix -) 40 mg PO DAILY [facility] - Objective Vital Signs: Vital Signs Temperature 98.7 F 05/30/17 14:55 Pulse Rate 71 05/30/17 14:55 Respiratory Rate 20 05/30/17 09:00 Blood Pressure 98/63 05/30/17 14:55 O2 Sat by Pulse Oximetry (%) 99 05/30/17 09:00 Constitutional: Yes: No Distress HENT: Yes: Atraumatic Neck: Yes: Supple Cardiovascular: Yes: Regular Rate and Rhythm Respiratory: Yes: CTA Bilaterally Gastrointestinal: Yes: Hypoactive Bowel Sounds, Tenderness (at the surgery site) Extremities: Yes: WNL Edema: No Peripheral Pulses WNL: Yes Neurological: Yes: Alert, Oriented Labs: CBC, BMP 05/30/17 07:30 05/30/17 07:30 INR, PTT INR 1.07 (0.82-1.09) 05/28/17 21:50 Problem List - Problems (1) Abdominal pain Assessment/Plan: prn pain meds surgery consult on clear liquid diet ivf Code(s): R10.9 - UNSPECIFIED ABDOMINAL PAIN Qualifiers: Abdominal location: right lower quadrant Qualified Code(s): R10.31 - Right lower quadrant pain (2) Appendicitis Assessment/Plan: s/p surgery Code(s): K37 - UNSPECIFIED APPENDICITIS Qualifiers: Appendicitis type: acute appendicitis Acute appendicitis type: unspecified acute appendicitis type Qualified Code(s): K35.80 - Unspecified acute appendicitis
[2017-05-31] MEDS ORDERED: DEXTROSE 5%-WATER 100 ML IVPB ONE ×3 (01:30→17:38)
[2017-05-31] MEDS ORDERED: PIPERACILLIN/TAZOBACTAM 4.5 GM VIAL IVPB ONE ×3 (01:30→17:38)
[2017-05-31] MEDS: PIPERACILLIN/TAZOB 4.5 GM 4.5 GM in DEXTROSE 5%-WATER 100 ML IVPB SCH ×3 (02:04→18:01)
[2017-05-31] MEDS: oxyCODONE HCL 5 MG TABLET PO PRN ×2 (06:54→16:09)
[2017-05-31 07:40] LABS: BASOPHIL 0.3 % (0-2.0); MCHC 33.3 g/dl (32.0-36.0); MEAN CELL VOLUME 87.2 fl (80-96); MEAN PLT VOLUME 7.4 fl (7.5-11.1); NEUTROPHILS 68.5 % (42.8-82.8); PLATELET COUNT 303 K/MM3 (134-434); RDW 15.2 % (11.6-15.6)
[2017-05-31 08:04] LABS: ANION GAP 6 (8-16); CALCIUM 8.2 mg/dL (8.5-10.1); CO2 26 mmol/L (21-32); CREATININE 0.6 mg/dL (0.55-1.02); GLUCOSE,RANDOM 81 mg/dL (74-106); MAGNESIUM 2.2 mg/dL (1.8-2.4); PHOSPHOROUS 2.7 mg/dL (2.5-4.9)
[2017-05-31 09:22] VITALS: BP 124/82; TEMP 98
[2017-05-31] MEDS: ENOXAPARIN NA (PORCINE) 40 MG/0.4 ML DISP.SYRIN SQ SCH (09:28)
[2017-05-31] MEDS ORDERED: PANTOPRAZOLE 40 MG TABLET (FP) PO SCH (10:00)
[2017-05-31 11:18] VITALS: PULSE 83
--- NOTE | 2017-05-31 13:13 | PN ---
Progress Note, Physician History of Present Illness: patient feels much better pain still better drainage tube still draining - Current Medication List Current Medications: Active Medications Enoxaparin Sodium (Lovenox -) 40 mg SQ DAILY [facility] Last Admin: 05/31/17 09:28 Dose: 40 mg Hydromorphone HCl (Dilaudid Injection -) 1 mg IVPB Q3H PRN PRN Reason: PAIN Last Admin: 05/29/17 16:04 Dose: 1 mg Piperacillin Sod/Tazobactam (Sod 4.5 gm/ Dextrose) 100 mls @ 200 mls/hr IVPB Q8H-IV [facility] PRN Reason: Protocol Last Admin: 05/31/17 09:28 Dose: 200 mls/hr Ibuprofen (Caldolor Injection -) 800 mg IVPB Q6H PRN PRN Reason: PAIN Last Admin: 05/29/17 17:44 Dose: 800 mg Ondansetron HCl (Zofran Injection) 4 mg IVPB Q6H PRN PRN Reason: NAUSEA Oxycodone HCl (Roxicodone -) 7.5 mg PO Q4H PRN PRN Reason: PAIN Last Admin: 05/31/17 06:54 Dose: 7.5 mg Pantoprazole Sodium (Protonix -) 40 mg PO DAILY [facility] Last Admin: 05/31/17 09:28 Dose: 40 mg - Objective Vital Signs: Vital Signs Temperature 98 F 05/31/17 09:21 Pulse Rate 83 05/31/17 10:47 Respiratory Rate 18 05/31/17 09:21 Blood Pressure 124/82 05/31/17 09:21 O2 Sat by Pulse Oximetry (%) 99 05/31/17 09:00 Constitutional: Yes: No Distress Cardiovascular: Yes: Regular Rate and Rhythm Respiratory: Yes: Regular, CTA Bilaterally Gastrointestinal: Yes: Normal Bowel Sounds, Soft, Other (drainage tube in place) Musculoskeletal: Yes: WNL Extremities: Yes: WNL Neurological: Yes: Alert, Oriented Labs: CBC, BMP 05/31/17 07:29 05/31/17 07:29 INR, PTT INR 1.07 (0.82-1.09) 05/28/17 21:50 Assessment/Plan Problem List - Problems (1) Abdominal pain Code(s): R10.9 - UNSPECIFIED ABDOMINAL PAIN Qualifiers: Abdominal location: right lower quadrant Qualified Code(s): R10.31 - Right lower quadrant pain (2) Appendicitis Code(s): K37 - UNSPECIFIED APPENDICITIS Qualifiers: Appendicitis type: acute appendicitis Acute appendicitis type: unspecified acute appendicitis type Qualified Code(s): K35.80 - Unspecified acute appendicitis peritonitis plan continue zosyn hydration rest as per surgery and primary
--- NOTE | 2017-05-31 16:32 | DS ---
Physical Examination Vital Signs: Vital Signs Temperature 98 F 05/31/17 09:21 Pulse Rate 83 05/31/17 10:47 Respiratory Rate 18 05/31/17 09:21 Blood Pressure 124/82 05/31/17 09:21 O2 Sat by Pulse Oximetry (%) 99 05/31/17 09:00 Constitutional: Yes: No Distress HENT: Yes: Atraumatic Neck: Yes: Supple Cardiovascular: Yes: Regular Rate and Rhythm Respiratory: Yes: CTA Bilaterally Gastrointestinal: Yes: Normal Bowel Sounds, Tenderness (some at the surgery site ) Extremities: Yes: WNL Edema: No Neurological: Yes: Alert, Oriented Labs: CBC, BMP 05/31/17 07:29 05/31/17 07:29 Discharge Summary Reason For Visit: APPENDICITIS Current Active Problems Abdominal pain (Acute) Appendicitis (Acute) - Instructions Diet, Activity, Other Instructions: see surgeoon next week soft diet Referrals: Rivera Cotto MD [Staff Physician] - Disposition: HOME - Home Medications Comprehensive Discharge Medication List: Ambulatory Orders Amoxicillin/Potassium Clav [Augmentin 875-125 Tablet] 1 each PO BID #14 tablet 05/31/17 d/w surgery pt can be dc on po abx prn tylenol for pain
== END 2017-05-31 18:22 | disposition home or self-care (01) | DRG 340 ==
LOC: JER 14:07 → JERBED 22:01 → J6S 05-29 15:40
PROVIDERS: ADMIT Internal Medicine; ATTEND Internal Medicine
PROC: 3E1M38X Irrigation of Peritoneal Cavity using Irrigating Substance, Percutaneous Approach, Diagnostic (ICD-10-PCS; 2017-05-29)
PROC: 0DTJ4ZZ Resection of Appendix, Percutaneous Endoscopic Approach (ICD-10-PCS; principal; 2017-05-29 11:30)
DX: K35.3 Acute appendicitis with localized peritonitis (principal); E83.39 Other disorders of phosphorus metabolism
CPT/HCPCS: 36415; 74177-TC; 80048; 80053; 81003; 81015; 83605; 83735; 84100; 84703; 85025; 85027; 85610; 85730; 86850; 86900; 86901; 87086; 88304-TC; 94760; 99284-25